=== PATIENT | male | born 1990 | race Caucasian/White ===

== ENCOUNTER 2019-02-13 12:26 | Emergency (ER) | payer MEDICAID, OTHER ==
[~2019-02-13] VITALS: Ht 180.3 cm; Wt 88.5 kg
[2019-02-13 12:32] VITALS: BP 154/93
--- NOTE | 2019-02-13 13:28 | NUR ---
REVIEWED MEDICATION PLAN/IMPORTANCE OF F/U WITH PROVIDED [facility]
== END 2019-02-13 13:29 | disposition home or self-care (01) ==
LOC: ED 13:10
DX: K08.89 Other specified disorders of teeth and supporting structures (principal)
CPT/HCPCS: 99283